=== PATIENT | female | born 1985 | race Caucasian/White ===

== ENCOUNTER → 2020-10-16 | Outpatient (CLI) | payer BC ==
[~2020-10-16] MED LIST: HYDR-1067 PO; METO25TA2 PO; METO25TA35 PO; OMEP40CA42 PO
== END | disposition home or self-care (01) ==
LOC: CVU 09:33
PROVIDERS: ATTEND Internal Medicine Cardiovascular Disease
DX: R94.31 Abnormal electrocardiogram [ECG] [EKG] (principal); R07.9 Chest pain, unspecified
CPT/HCPCS: 78452; 93017; 93306; 93356; A9502